=== PATIENT | female | born 1940 | race Caucasian/White ===

== ENCOUNTER → 2017-12-05 | Outpatient (CLI) | payer MEDICARE ==
--- NOTE | 2017-12-12 13:34 | HM ---
HOLTER MONITOR REPORT 24 HOUR HOLTER MONITOR. DATE OF THE STUDY: 12/05/2017 The patient was monitored for 24 hours. The baseline rhythm appeared to be a sinus mechanism with a minimum heart rate of 59 beats per minute, max heart rate 120 beats per minute, average heart rate of 76 beats per minute. Ventricular ectopic events were presented in less than 1% of the total beat count and presented as isolated PVCs. Supraventricular ectopic events were presented in less than 1% of the total presented as isolated PACs. The patient did have one episode of atrial tachycardia lasted less than 1 minute at a heart rate of 114 beats per minute. CONCLUSION: 1. Sinus rhythm as a baseline mechanism. 2. Rare ventricular ectopic events. 3. Rare supraventricular ectopic events. 4. The patient had one episode of atrial tachycardia, lasted less than 1 minute and it was at a heart rate of 114 beats per minute. 5. There is no evidence of advanced AV block. 6. There is no evidence of sinus pause or sinus arrest. MMODL / IJN: [id number] /
== END | disposition home or self-care (01) ==
LOC: RADECHMAIN 11:57
PROVIDERS: ATTEND Family Medicine
DX: I47.1 Supraventricular tachycardia (principal)
CPT/HCPCS: 93225; 93226

== ENCOUNTER → 2017-12-26 | Outpatient (CLI) | payer MEDICARE ==
--- NOTE | 2017-12-27 11:38 | MM ---
Reason for exam: screening (asymptomatic). Last mammogram was performed 3 years ago. History: Patient is postmenopausal and is nulliparous. Family history of breast cancer in mother at age 38. Physical Findings: A clinical breast exam by your physician is recommended on an annual basis and results should be correlated with mammographic findings. MG 3D Screening Mammo W/Cad Bilateral CC and MLO view(s) were taken. Prior study comparison: January 07, 2015, bilateral MG screening mammo w CAD. September 18, 2012, bilateral digital screening mammo w/CAD. There are scattered fibroglandular densities. No suspicious abnormality. No significant changes when compared with prior studies. ASSESSMENT: Negative, BI-RAD 1 RECOMMENDATION: Routine screening mammogram of both breasts in 1 year.
== END | disposition home or self-care (01) ==
LOC: RADMAMWWP 11:24
PROVIDERS: ATTEND Family Medicine
DX: Z12.31 Encounter for screening mammogram for malignant neoplasm of breast (principal)
CPT/HCPCS: 77063; 77067

== ENCOUNTER → 2018-07-20 | Outpatient (CLI) | payer MEDICARE ==
--- NOTE | 2018-07-20 16:52 | US ---
EXAMINATION TYPE: US thyroid st tissue head/neck DATE OF EXAM: 07/20/2018 COMPARISON: NONE CLINICAL HISTORY: 78-year-old female Z68.33 Body mass index (BMI) 33.0-33.9, adult. TECHNIQUE: Multiple sonographic images of the thyroid gland are obtained. FINDINGS: GLAND SIZE: Right Lobe: 3.4 x 1.0 x 1.0 cm Overall Parenchyma: homogenous Left Lobe: 3.3 x 1.1 x 0.9 cm Overall Parenchyma: homogeneous Isthmus Thickness: 0.2 cm NODULES RIGHT: # of nodules measured on right: 1 1. 0.6 X 0.3 x 0.5 cm echogenic solid nodule at the lower pole with well-defined margins; . This n odule is wider than tall and shows no intranodular vascularity. Prior size: No previous LEFT: # of nodules measured on left: 0 ISTHMUS: # of nodules measured in the isthmus: 0 Bilateral neck scanned, no evidence of lymphadenopathy. IMPRESSION: Solitary solid nodule at the lower left lobe measures 6 mm. The thyroid gland is slightly small.
== END | disposition home or self-care (01) ==
LOC: RADUSWWP 14:36
PROVIDERS: ATTEND Family Medicine
DX: E04.1 Nontoxic single thyroid nodule (principal); F45.8 Other somatoform disorders
CPT/HCPCS: 76536

== ENCOUNTER → 2019-02-04 | Outpatient (CLI) | payer MEDICARE ==
--- NOTE | 2019-02-05 14:03 | MM ---
Reason for exam: screening (asymptomatic). Last mammogram was performed 1 year and 1 month ago. History: Patient is postmenopausal and is nulliparous. Family history of breast cancer in mother at age 38. Physical Findings: A clinical breast exam by your physician is recommended on an annual basis and results should be correlated with mammographic findings. MG 3D Screening Mammo W/Cad Bilateral CC and MLO view(s) were taken. Prior study comparison: December 26, 2017, bilateral MG 3d screening mammo w/cad. January 07, 2015, bilateral MG screening mammo w CAD. There are scattered fibroglandular densities. No significant changes when compared with prior studies. ASSESSMENT: Negative, BI-RAD 1 RECOMMENDATION: Routine screening mammogram of both breasts in 1 year.
== END | disposition home or self-care (01) ==
LOC: RADMAMWWP 16:31
PROVIDERS: ATTEND Family Medicine
DX: Z12.31 Encounter for screening mammogram for malignant neoplasm of breast (principal)
CPT/HCPCS: 77063; 77067

== ENCOUNTER → 2020-04-14 | Outpatient (CLI) | payer MEDICARE ==
--- NOTE | 2020-04-16 09:31 | MM ---
Reason for exam: screening (asymptomatic). Last mammogram was performed 1 year and 2 months ago. History: Patient is postmenopausal and is nulliparous. Family history of breast cancer in mother at age 38. Physical Findings: A clinical breast exam by your physician is recommended on an annual basis and results should be correlated with mammographic findings. MG 3D Screening Mammo W/Cad Bilateral CC, MLO, and XCCL view(s) were taken. Prior study comparison: February 04, 2019, bilateral MG 3d screening mammo w/cad. December 26, 2017, bilateral MG 3d screening mammo w/cad. There are scattered fibroglandular densities. New loosely clustered indeterminate calcifications far posterior and lower left breast likely dermal in location. Additional views recommended. ASSESSMENT: Incomplete: need additional imaging evaluation, BI-RAD 0 RECOMMENDATION: Special view mammogram of the left breast. [facility] will attempt to contact patient to return for supplemental views.
== END | disposition home or self-care (01) ==
LOC: RADMAMWWP 10:14
PROVIDERS: ATTEND Family Medicine
DX: Z12.31 Encounter for screening mammogram for malignant neoplasm of breast (principal)
CPT/HCPCS: 77063; 77067

== ENCOUNTER → 2020-04-23 | Outpatient (CLI) | payer MEDICARE | END | disposition home or self-care (01) | LOC: RADMAMWWP 09:31 | PROVIDERS: ATTEND Family Medicine | DX: Z53.9 Procedure and treatment not carried out, unspecified reason (principal) ==

== ENCOUNTER → 2020-10-06 | Outpatient (CLI) | payer MEDICARE ==
--- NOTE | 2020-10-06 09:59 | XR ---
EXAMINATION TYPE: XR sternum DATE OF EXAM: 10/06/2020 COMPARISON: NONE HISTORY: Pain TECHNIQUE: 2 views submitted FINDINGS: There is a chronic appearing deformity at the sternomanubrial junction. Remaining portion o f the visualized sternum appears intact. No retrosternal abnormal density.. 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 Correlate clinically.
== END | disposition home or self-care (01) ==
LOC: RADXRMAIN 09:31
PROVIDERS: ATTEND Family Medicine
DX: M95.4 Acquired deformity of chest and rib (principal)
CPT/HCPCS: 71120

== ENCOUNTER → 2021-06-30 | Outpatient (CLI) | payer MEDICARE ==
--- NOTE | 2021-06-30 12:09 | MM ---
Reason for exam: additional evaluation requested from prior study. Last mammogram was performed 1 year and 3 months ago. History: Patient is postmenopausal and is nulliparous. Physical Findings: Nurse did not find any significant physical abnormalities on exam. MG 3D Diag Mammo W/Cad LOLI Bilateral CC and MLO view(s) were taken. Prior study comparison: April 14, 2020, bilateral MG 3d screening mammo w/cad. February 04, 2019, bilateral MG 3d screening mammo w/cad. There are scattered fibroglandular densities. No significant new findings when compared with previous films. These results were verbally communicated with the patient and result sheet given to the patient on 06/30/21. ASSESSMENT: Benign, BI-RAD 2 RECOMMENDATION: Routine screening mammogram of both breasts in 1 year.
--- NOTE | 2021-06-30 16:50 | BD ---
EXAMINATION TYPE: Axial Bone Density DATE OF EXAM: 06/30/2021 COMPARISON: 02.19.2015 CLINICAL HISTORY: 81 YR OLD FEMALE....ICD-10 CODE: M89.9 DISORDER OF BD Height: 62.3 Weight: 145 FRAX RISK QUESTIONS: NOTHING TO NOTE HERE RISK FACTORS HISTORY OF: Diet low in dairy products/other sources of calcium: YES Postmenopausal woman: YES, AT AGE 48 YRS OLD Hyperparathyroidism: NO Adrenal Insufficiency: NO MEDICATIONS: Additional Medications: VIT D AND CALCIUM Additional History: NOTHING TO NOTE HERE EXAM MEASUREMENTS: Bone mineral densitometry was performed using the [employer] System. Bone mineral density as measured about the Lumbar spine is: ----- L1-L4(G/cm2): 1.066 T Score Values are as follows: ----- L1: -0.2 ----- L2: -0.7 ----- L3: -1.6 ----- L4: -1.3 ----- L1-L4: -0.9 Bone mineral density has: Decreased -9.4% since study of: 02.19.2015 Bone mineral density about the R hip (g/cm2): 0.972 Bone mineral density about the L hip (g/cm2): 0.978 T Score values are as follows: -----R Neck: -1.2 -----L Neck: -1.0 -----R Total: -0.3 -----L Total: -0.2 Bone mineral density has: Decreased -2.9% since study of: 02.19.2015 FRAX%s: THERE IS A 12.0% CHANCE FOR A MAJOR OSTEOPOROTIC FX AND A 2.4% FOR HIP.....PROBABILITY FOR FX IN 10 YRS TIME IMPRESSION: Osteopenia (T Score between -2.5 and -1). There is slightly increased risk of fracture and the patient may be considered for treatment. Re-Screen 2-5 years. NOTE: T-SCORE=SD OF THE YOUNG ADULT MEAN.
== END | disposition home or self-care (01) ==
LOC: RADMAMWWP 10:01
PROVIDERS: ATTEND Family Medicine
DX: N64.89 Other specified disorders of breast (principal); Z78.0 Asymptomatic menopausal state; M85.80 Other specified disorders of bone density and structure, unspecified site
CPT/HCPCS: 77080; 77066; G0279; 77062

== ENCOUNTER → 2021-10-22 | Outpatient (CLI) | payer MEDICARE ==
--- NOTE | 2021-10-22 16:32 | ECHOF ---
Referral Reason:R01.1 cardiac murmur MEASUREMENTS -------- HEIGHT: 160.0 cm WEIGHT: 68.0 kg BP: 129/86 RVIDd: 2.8 cm (< 3.3) IVSd: 1.0 cm (0.6 - 1.1) LVIDd: 3.7 cm (3.9 - 5.3) LVPWd: 0.9 cm (0.6 - 1.1) IVSs: 1.5 cm LVIDs: 2.3 cm LVPWs: 1.4 cm LA Diam: 3.3 cm (2.7 - 3.8) LAESV Index (A-L): 26.40 ml/m Ao Diam: 2.7 cm (2.0 - 3.7) AV Cusp: 1.8 cm (1.5 - 2.6) MV EXCURSION: 12.126 mm (> 18.000) MV EF SLOPE: 50 mm/s (70 - 150) EPSS: 0.3 cm MV E Ras: 0.98 m/s MV DecT: 217 ms MV A Ras: 1.22 m/s MV E/A Ratio: 0.80 RAP: 5.00 mmHg RVSP: 26.41 mmHg FINDINGS -------- Sinus rhythm. This was a technically adequate study. The left ventricular size is normal. Left ventricular wall thickness is normal. Overall left vent ricular systolic function is normal with, an EF between 55 - 60 %. The right ventricle is normal in size. Normal LA size by volume 22+/-6 ml/m2. The right atrium is normal in size. Interatrial and interventricular septum intact. The aortic valve is trileaflet, and appears structurally normal. No aortic stenosis or regurgitation. Mild mitral annular calcification present. There is trace to mild mitral regurgitation. Mild tricuspid regurgitation present. Right ventricular systolic pressure is normal at < 35 mmHg. The pulmonic valve was not well visualized. The aortic root size is normal. Normal inferior vena cava with normal inspiratory collapse consistent with estimated right atrial pre ssure of 5 mmHg. There is no pericardial effusion. CONCLUSIONS -------- 1. The left ventricular size is normal. 2. Left ventricular wall thickness is normal. 3. Overall left ventricular systolic function is normal with, an EF between 55 - 60 %. 4. Mild mitral annular calcification present. 5. There is trace to mild mitral regurgitation. 6. Mild tricuspid regurgitation present. 7. There is no pericardial effusion. SENIOR ENGINEERING SPECIALIST: Halima Salmon RDCS
== END | disposition home or self-care (01) ==
LOC: RADECHMAIN 13:45
PROVIDERS: ATTEND Family Medicine
DX: I08.1 Rheumatic disorders of both mitral and tricuspid valves (principal)
CPT/HCPCS: 93306

== ENCOUNTER → 2022-06-23 | Outpatient (CLI) | payer MEDICARE ==
[~2022-06-23] MED LIST: BEBTELOVIMAB (EUA) 175 MG/2 ML VIAL IV NR; SODIUM CHLORIDE 0.9% 500 ML 500 ML in EMPTY BAG 1 BAG IV PRN
[2022-06-23 13:23] VITALS: RESP 18; TEMP 97.6
[2022-06-23 14:01] VITALS: BP 125/77; PULSE 74
== END ==
LOC: PROCWHC3 12:52
PROVIDERS: ATTEND Physician Assistant Medical
DX: U07.1 COVID-19 (principal)
CPT/HCPCS: Q0222; M0222

== ENCOUNTER → 2022-09-20 | Outpatient (CLI) | payer MEDICARE ==
--- NOTE | 2022-09-21 08:23 | MM ---
Reason for Exam: Screening (asymptomatic). Last mammogram was performed 1 year(s) and 3 month(s) ago. Patient History: Menarche at age 15. Patient has no children. Postmenopausal. Risk Values: Tracey 5 year model risk: 1.8%. NCI Lifetime model risk: 2.8%. Prior Study Comparison: 02/04/2019 Bilateral Screening Mammogram, [facility]. 04/14/2020 Bilateral Screening Mammogram, [facility]. 06/30/2021 Bilateral Diagnostic Mammogram, [facility]. Tissue Density: The breast tissue is heterogeneously dense. This may lower the sensitivity of mammography. Findings: Analyzed By CAD. There is no suspicious group of microcalcifications or new suspicious mass in either breast. Overall Assessment: Benign, BI-RAD 2 Management: Screening Mammogram of both breasts in 1 year. A clinical breast exam by your physician is recommended on an annual basis and results should be correlated with mammographic findings. Electronically signed and approved by: Kunal Mccullough M.D. Radiologis
== END | disposition home or self-care (01) ==
LOC: RADMAMWWP 14:53
PROVIDERS: ATTEND Family Medicine
DX: Z12.31 Encounter for screening mammogram for malignant neoplasm of breast (principal)
CPT/HCPCS: 77063; 77067

== ENCOUNTER → 2023-06-07 | Outpatient (CLI) | payer MEDICARE ==
[2023-06-07 16:06] LABS: ALT 61 U/L (8-44); AST 49 U/L (13-35); Albumin 4.8 d/dL (3.8-4.9); Albumin/Globulin Ratio 2.29 Ratio (1.60-3.17); Alkaline Phosphatase 98 U/L (41-126); BUN/Creat Ratio 27.86 Ratio (12.00-20.00); Blood Urea Nitrogen 19.5 mg/dL (9.0-27.0); Calcium 9.5 mg/dL (8.7-10.3); Carbon Dioxide 26.9 mmol/L (21.6-31.8); Chloride 103 mmol/L (96-109); Chol/HDL Ratio 1.97 Ratio; Globulin 2.1 d/dL (1.6-3.3); Glucose 90 mg/dL (70-110); LDL Cholesterol,Calculated 71.8 mg/dL (0.0-131.0); Magnesium 2.1 mg/dL (1.5-2.4); Phosphorus 4.1 mg/dL (2.4-5.1); Potassium 4.1 mmol/L (3.5-5.5); Sodium 143 mmol/L (135-145); Total Bilirubin 0.6 mg/dL (0.3-1.2); Total Protein 6.9 d/dL (6.2-8.2); VLDL Calculation 10.54 mg/dL (5.00-40.00)
[2023-06-07 16:19] LABS: RBC 4.08 X 10*6/uL (4.10-5.20); WBC 2.91 X 10*3/uL (4.50-10.00)
[2023-06-07 16:20] LABS: Basophils # (A) 0.06 X 10*3/uL (0.00-0.10); Basophils % (A) 2.1 %; Eosinophils # (A) 0.01 X 10*3/uL (0.04-0.35); Eosinophils % (A) 0.3 %; HCT 40.5 % (37.2-46.3); Lymphocytes # (A) 1.25 X 10*3/uL (0.90-5.00); MCH 31.9 pg (27.0-32.0); MCHC 32.1 d/dL (32.0-37.0); MCV 99.3 FL (80.0-97.0); Mean Platelet Volume 14.3 FL (9.5-12.2); Monocytes # (A) 0.51 X 10*3/uL (0.20-1.00); Monocytes % (A) 17.5 %; NRBC Per 100 WBC 0 X 10*3/uL (0.00-0.01); Neutrophils # (A) 1.07 X 10*3/uL (1.80-7.70); Neutrophils % (A) 36.8 %; Platelet Count 90 X 10*3/uL (140-440); RDW 13.8 % (11.5-14.5)
== END | disposition home or self-care (01) ==
LOC: LABWHC1 08:57
PROVIDERS: ATTEND Family Medicine
DX: Z13.21 Encounter for screening for nutritional disorder (principal); Z13.220 Encounter for screening for lipoid disorders; Z13.29 Encounter for screening for other suspected endocrine disorder; R53.83 Other fatigue
CPT/HCPCS: 36415; 80053; 80061; 82306; 83735; 84100; 84443; 84590; 85025

== ENCOUNTER → 2023-10-09 | Outpatient (CLI) | payer MEDICARE | END | disposition home or self-care (01) | LOC: LABWHC1 14:56 | PROVIDERS: ATTEND Otolaryngology | DX: J30.89 Other allergic rhinitis (principal) | CPT/HCPCS: 36415; 86001 ==

== ENCOUNTER → 2023-10-09 | Outpatient (CLI) | payer MEDICARE ==
--- NOTE | 2023-10-10 12:18 | BD ---
EXAMINATION TYPE: Axial Bone Density DATE OF EXAM: 10/09/2023 CLINICAL HISTORY: 83 years old Female. ICD-10 CODE: Z78.0 ASYMPTOMATIC MENOPAUSAL : Height: 5 ft 2 1/2 i Weight: 125 FRAX RISK QUESTIONS: Alcohol (3 or more units per day): no Family History (Parent hip fracture): no Glucocorticoids (More than 3mos): no (Ex: prednisone, prednisolone, methylprednisolone, dexamethasone, and hydrocortisone). History of Fracture in Adulthood: no Secondary Osteoporosis: 1. Type 1 Diabetes: no 2. Hyperthyroidism: no 3. Menopause before 45: yes 4. Malnutrition: no 5. Chronic liver disease: no Rheumatoid Arthritis: no Current Tobacco Use: no RISK FACTORS HISTORY OF: Surgery to Spine/Hip(right/left)/Wrist (right/left): no Family History of Osteoporosis: no Active: yes Diet low in dairy products/other sources of calcium: no Postmenopausal woman: yes Take estrogen and/or progesterone medications: no Lost more than 2 inches in height since high school: no Frequent falls: no Poor Health: good Hyperparathyroidism: no Adrenal Insufficiency: no MEDICATIONS: Additional Medications: none Additional History: EXAM MEASUREMENTS: Bone mineral densitometry was performed using the [employer] System. Bone mineral density as measured about the Lumbar spine is: ----- L1-L4(G/cm2): 1.123 T Score Values are as follows: ----- L1: -0.6 ----- L2: -0.8 ----- L3: -0.7 ----- L4: 0.1 ----- L1-L4: -0.5 Z Score Values are as follows: ----- L1: 1.5 ----- L2: 1.3 ----- L3: 1.4 ----- L4: 2.2 ----- L1-L4: 1.7 Bone mineral density has: increased 5.3 % since study of: 2020 Bone mineral density about the R hip (g/cm2): 0.864 Bone mineral density about the L hip (g/cm2): 0.910 T Score values are as follows: -----R Neck: -1.2 -----L Neck: -0.9 -----R Total: -0.7 -----L Total: -0.6 Z Score values are as follows: -----R Neck: 1.1 -----L Neck: 1.5 -----R Total: 1.6 -----L Total: 1.7 Bone mineral density has: decreased -5.0 % since study of: 2020 FRAX%s: The graph provided illustrates a 11.7 % chance for a major osteoporotic fx and a 2.8 % chance for the hips probability for fx in 10 years time. IMPRESSION: Osteopenia (T Score between -2.5 and -1). There is slightly increased risk of fracture and the patient may be considered for treatment. Re-Screen 2-5 years. NOTE: T-SCORE=SD OF THE YOUNG ADULT MEAN.
--- NOTE | 2023-10-10 19:21 | MM ---
Reason for Exam: Screening (asymptomatic). Last screening mammogram was performed 12 month(s) ago. Patient History: Menarche at age 15. Patient has no children. Postmenopausal. Risk Values: Tracey 5 year model risk: 1.8%. NCI Lifetime model risk: 2.6%. Prior Study Comparison: 04/14/2020 Bilateral Screening Mammogram, [facility]. 06/30/2021 Bilateral Diagnostic Mammogram, [facility]. 09/20/2022 Bilateral MG 3D screening mammo w/cad, [facility]. Tissue Density: The breast tissue is heterogeneously dense. This may lower the sensitivity of mammography. Findings: Analyzed By CAD. There is no suspicious group of microcalcifications or new suspicious mass in either breast. Overall Assessment: Negative, BI-RAD 1 Management: Screening Mammogram of both breasts in 1 year. . Patient should continue monthly self-breast exams. A clinical breast exam by your physician is recommended on an annual basis. This exam should not preclude additional follow-up of suspicious palpable abnormalities. Note on Tracey scores and lifetime risk: 1. A Tracey score greater than 3% is considered moderate risk. If this is the case, consider specialist referral to assess eligibility for a risk reducing agent. 2. If overall lifetime risk for the development of breast cancer is 20% or higher, the patient may qualify for future screening with alternating mammogram and breast MRI. Electronically signed and approved by: Dirk Andino M.D. Radiologist
== END | disposition home or self-care (01) ==
LOC: RADBDWWP 13:58
PROVIDERS: ATTEND Family Medicine
DX: Z12.31 Encounter for screening mammogram for malignant neoplasm of breast (principal); M85.851 Other specified disorders of bone density and structure, right thigh; Z78.0 Asymptomatic menopausal state
CPT/HCPCS: 77063; 77067; 77080

== ENCOUNTER → 2025-02-04 | Outpatient (CLI) | payer MEDICARE ==
--- NOTE | 2025-02-05 07:43 | MM ---
Reason for Exam: Screening (asymptomatic). Last mammogram was performed 1 year(s) and 4 month(s) ago. Patient History: Menarche at age 15. Patient has no children. Postmenopausal. Risk Values: Tracey 5 year model risk: 1.7%. NCI Lifetime model risk: 2.3%. Prior Study Comparison: 06/30/2021 Bilateral Diagnostic Mammogram, [facility]. 09/20/2022 Bilateral MG 3D screening mammo w/cad, [facility]. 10/09/2023 Bilateral MG 3D screening mammo w/cad, [facility]. Tissue Density: The breasts are heterogeneously dense, which may obscure small masses. Findings: Analyzed By CAD. A few scattered benign calcifications bilaterally are redemonstrated. There is a new group of indistinct calcifications posteriorly in the left breast outer aspect, possible dermal calcifications. Limitation currently as [employer] was not available. Overall Assessment: Incomplete: need additional imaging evaluation, BI-RAD 0 Management: Diagnostic Mammogram of the left breast. Return for additional spot magnification and 3-D true true lateral view left breast. Patient should continue monthly self-breast exams. A clinical breast exam by your physician is recommended on an annual basis. This exam should not preclude additional follow-up of suspicious palpable abnormalities. Note on Tracey scores and lifetime risk: 1. A Tracey score greater than 3% is considered moderate risk. If this is the case, consider specialist referral to assess eligibility for a risk reducing agent. 2. If overall lifetime risk for the development of breast cancer is 20% or higher, the patient may qualify for future screening with alternating mammogram and breast MRI. [facility], , 02/05/2025 7:38 AM. Electronically signed and approved by: Je Mayes M.D.
== END | disposition home or self-care (01) ==
LOC: RADMAMWWP 14:42
PROVIDERS: ATTEND Family Medicine
DX: Z12.31 Encounter for screening mammogram for malignant neoplasm of breast (principal); R92.333 Mammographic heterogeneous density, bilateral breasts; R92.1 Mammographic calcification found on diagnostic imaging of breast; Z78.0 Asymptomatic menopausal state
CPT/HCPCS: 77063; 77067; 87070

== ENCOUNTER → 2025-02-14 | Outpatient (CLI) | payer MEDICARE ==
--- NOTE | 2025-02-14 10:16 | MM ---
Reason for Exam: Additional evaluation requested from abnormal screening. Last screening mammogram was performed less than 1 month ago. Patient History: Menarche at age 15. Patient has no children. Postmenopausal. Risk Values: Tracey 5 year model risk: 1.7%. NCI Lifetime model risk: 2.3%. Prior Study Comparison: 09/20/2022 Bilateral MG 3D screening mammo w/cad, [facility]. 10/09/2023 Bilateral MG 3D screening mammo w/cad, [facility]. 02/04/2025 Bilateral MG 3D screening mammo w/cad, [facility]. Tissue Density: Left: The breasts are heterogeneously dense, which may obscure small masses. Findings: Analyzed By CAD. Calcifications appear on tangential view to be related to the mole skin. Overall Assessment: Probably benign, BI-RAD 3 Management: Diagnostic Mammogram of the left breast in 6 months. . Results were given to the patient verbally at the time of exam. Patient should continue monthly self-breast exams. A clinical breast exam by your physician is recommended on an annual basis. This exam should not preclude additional follow-up of suspicious palpable abnormalities. Note on Tracey scores and lifetime risk: 1. A Tracey score greater than 3% is considered moderate risk. If this is the case, consider specialist referral to assess eligibility for a risk reducing agent. 2. If overall lifetime risk for the development of breast cancer is 20% or higher, the patient may qualify for future screening with alternating mammogram and breast MRI. [facility], , 02/14/2025 10:14 AM. Electronically signed and approved by: Garry Roberts M.D. Radiologis
== END | disposition home or self-care (01) ==
LOC: RADMAMWWP 09:12
PROVIDERS: ATTEND Family Medicine
DX: R92.8 Other abnormal and inconclusive findings on diagnostic imaging of breast (principal); R92.332 Mammographic heterogeneous density, left breast; R92.1 Mammographic calcification found on diagnostic imaging of breast; Z78.0 Asymptomatic menopausal state
CPT/HCPCS: 77065; G0279; 77061